=== PATIENT | female | born 1990 | race Caucasian/White ===

== ENCOUNTER → 2017-07-03 | Day surgery (SDC) | payer SELFPAY ==
[~2017-07-03] VITALS: Ht 160 cm; Wt 61.7 kg
--- NOTE | 2017-07-11 13:11 | Operative Report ---
Operative/Inv Procedure Report Surgery Date: 07/03/17 Name of Procedure: Bilateral breast lift, liposuction trunk thighs, abdomino plasty with fat transfer to the buttocks Pre-Operative Diagnosis: Breast ptosis lipodystrophy Post-Operative Diagnosis: Same Estimated Blood Loss: scant (300) Surgeon/Sr. Manager Marketing: Candido Aragon MD Anesthesia: general endotracheal tube Operative/Procedure Note Note: Patient was counseled regards to the procedure the alternatives the risks and expected outcomes as relates to the patient's request for surgical intervention to treat bilateral breast ptosis with lipodystrophy following weight loss surgery. Patient has requested bilateral breast lift. The circumareolar vertical technique an abdominoplasty as well as liposuction of the upper medial inner thighs upper and lower back in the abdominal wall flap with fat transfer to the buttocks. She was given a SPS informed consents which she has returned sign has no questions regarding them. As best as possible she was marked in the standing position shown the areas of would be treated those that would not. She was then taken to the operating room placed supine on the table Venodyne boots were placed antibiotics were given and general anesthesia was established. Chest and abdomen were prepped and draped in usual sterile fashion. Liposuction was carried out of the abdominal wall flap after tumescent fluid. Breast ptosis was then to be certain vertical technique with a very small inferior pole excision. 3 layer closure was carried out of the incisions. Attention was then turned to the abdomen where the lower marked incision which was done in the standing position with a measuring tape was deepened. The umbilicus was freed from the surrounding tissue the flap was developed. The patient was put in the semi-Quiros's position to assess tension and then the upper incision was deepened and the flap removed. 2 layer plication was carried out from the xiphoid to the pubis with nonabsorbable suture. 3 layer closure was carried out of the incision as well as the umbilicus. This was done over drains. Patient was then put in the jackknife position appropriately padded. Tumescent fluid was used throughout the upper and lower back and fat was harvested. Of note liposuction was carried out prior to the turn of the upper medial thigh. Once the fat was processed approximately 500 mL was injected into each buttock in the superficial plane having previously marked the danger zones. Wounds closed with sutures and glue. End dictation
== END ==
LOC: STS 02:46
DX: Z41.1 Encounter for cosmetic surgery (principal); N64.81 Ptosis of breast; E65 Localized adiposity; Z98.84 Bariatric surgery status
CPT/HCPCS: 81025; C9399; J0131; J0171; J0690; J2250; Q9968